=== PATIENT | female | born 1970 | race Caucasian/White ===

== ENCOUNTER → 2021-10-01 | Outpatient (CLI) | payer BC ==
[~2021-10-01] MED LIST: HYDR-757 PO; IOHEXOL 350 MG/ML 100 ML (OMNIPAQUE 350) VIAL IV ONE; METH4TAB PO; NS 100 ML (IVPB) BAG IV ONE
--- NOTE | 2021-10-01 20:20 | Diagnostic Imaging Report ---
PROCEDURE: CT chest with contrast only. TECHNIQUE: Multiple contiguous axial images were obtained through the chest after administration of intravenous contrast. Auto Exposure Controls were utilized during the CT exam to meet ALARA standards for radiation dose reduction. INDICATION: J98.4, pulmonary nodule. COMPARISON: Radiographs dated 07/28/2014. FINDINGS: Right axillary lymph node is mildly enlarged measuring 1.1 cm in short dimension. No additional mediastinal or hilar adenopathy. Mild scattered vascular calcifications without aneurysmal dilatation of the thoracic aorta. The heart is upper limits of normal in size. No pericardial effusion. No pleural effusion. The trachea is patent. No pneumothorax. Minimal background emphysematous changes without suspicious pulmonary nodule, mass or consolidation. Minimal lingular scarring and/or atelectasis. Fatty infiltration of the liver. Cholelithiasis. Mild scattered osseous degenerative changes without acute osseous abnormality. IMPRESSION: 1. Minimal background emphysematous changes with minimal lingular scarring and/or atelectasis. Lungs otherwise appear clear. Recommend correlation with recent chest x-ray given provided indication is a right-sided pulmonary nodule on recent chest x-ray. 2. Minimally enlarged right axillary lymph node. This of uncertain etiology or significance. This could simply be reactive in nature. 3. Minimal cholelithiasis. 4. Fatty filtration of the liver. Dictated by: Dictated on workstation # [id number]
== END ==
LOC: RAD 17:45
PROVIDERS: ATTEND Family Medicine
DX: J98.4 Other disorders of lung (principal); K76.0 Fatty (change of) liver, not elsewhere classified; R91.1 Solitary pulmonary nodule
CPT/HCPCS: 71260